=== PATIENT | male | born 1935 | race Caucasian/White ===

== ENCOUNTER 2016-09-19 15:56 | Emergency (ER) | payer OTHER ==
--- NOTE | 2016-09-19 16:15 | EDPHY ---
H & P Stated Complaint: fever Time Seen by Provider: 09/19/16 16:14 - Personal History Current Tetanus Diphtheria and Acellular Pertussis (TDAP): Yes Tetanus Vaccine Date: 09/2006 - Medical/Surgical History Hx Asthma: No Hx Chronic Respiratory Disease: Yes Hx Diabetes: No Hx Cardiac Disease: No Hx Renal Disease: No Hx Cirrhosis: No Hx Alcoholism: No Hx HIV/AIDS: No Hx Splenectomy or Spleen Trauma: No Other PMH: sleep apnea, high cholesterol. slow heart rate (in 40-50s). low BP - Social History Smoking Status: Former smoker Constitutional: Initial Vital Signs Temperature (C) 37.5 C 09/19/16 16:04 Heart Rate 54 L 09/19/16 16:04 Respiratory Rate 16 09/19/16 16:04 Blood Pressure 188/75 H 09/19/16 16:04 O2 Sat (%) 91 L 09/19/16 16:04 O2 Delivery Mode Room Air Allergies/Adverse Reactions: No Known Allergies Allergy (Verified 08/29/15 13:11) Home Medications: Medication Instructions Recorded Cephalexin [Keflex] 500 mg PO QID 5 Days 08/29/15 Fenofibric Acid (Choline) 45 mg PO 08/29/15 [TRILIPIX] Fluticasone Nasal [Flonase Nasal 16 gm NS 08/29/15 Benedict] Hydrocodone/APAP 5/325 [K[place]haw 1 tab PO Q4H PRN #7 tab 08/29/15 5/325] Rosuvastatin Calcium [Crestor] 20 mg PO DAILY 08/29/15 levOFLOXACIN [levAQUIN (*)] 750 mg PO DAILY #10 tab 09/19/16 Medical Decision Making - Diagnostics Imaging Results: Imaging Impressions Chest X-Ray 09/19/16 16:25 Impression: Suspect airways disease with increased basilar opacities bilaterally , pneumonia versus atelectasis. ED Course/Re-evaluation: CHIEF COMPLAINT: Dyspnea HISTORY OF PRESENT ILLNESS: The patient is a 80 y/o male with COPD arriving in the emergency department with worsening dyspnea, onset 3 days ago. Saturday night the patient was out in the cold and woke up Saturday with a cough, sore throat, cough, dyspnea, and subjective fever and chills. He has a history of pneumonia and described his symptoms as similar to his last pneumonic episode. He denies chest pain or pressure, diaphoresis, nausea, or additional complaints. He has not had any recent long flights or admissions to the hospital. REVIEW OF SYSTEMS: A 10 point review of systems was performed and is negative with the exception of the elements mentioned in the history of present illness. PHYSICAL EXAM: HR 54, BP 188/75, O2 Sat 91%, RR 16. Temp noted 37.5 C General Appearance: Afebrile, alert, well hydrated, appropriate, and non-toxic appearing. Head: Atraumatic without scalp tenderness or obvious injury Eyes: Pupils equal, round, reactive to light and accommodation, EOMI, no trauma , no injection. Ears: Clear bilaterally, no perforation, normal landmarks Nose: Atraumatic, no rhinorrhea, clear. Throat: There is no erythema or exudates, no lesions, normal tonsils, mucus membranes moist. Neck: Supple, 2+ carotid upstroke, nontender, no lymphadenopathy. Respiratory: Waxing and waning breath sounds. No retractions, no wheezes, and no accessory muscle use. Diffuse coarse rhonchi, decreased breath sounds left base. Cardiovascular: Regular rate and rhythm, no murmurs, rubs, or gallops. Bilateral carotid, radial, dorsalis pedis, and posterior tibial pulses intact. Good capillary refill all extremities. Gastrointestinal: Abdomen is soft, nontender, non-distended, no masses, no rebound, no guarding, no peritoneal signs. Musculoskeletal: Normal active ROM of all extremities, atraumatic. Neurological: Alert, appropriate, and interactive. The patient has normal DTRs and non-focal cranial nerves, motor, sensory, and cerebellar exam. Skin: No rashes, good turgor, no nodules on palpation. Past medical history: Pneumonia, COPD, sleep apnea Past surgical history: Denies Family history: Non-contributory Social history: at bedside DIFFERENTIAL DIAGNOSIS: The differential diagnosis for the patient's shortness of breath included but was not limited to pneumonia, myocardial infarction, acute mountain sickness, high altitude pulmonary edema, congestive heart failure, and pulmonary embolus. MEDICAL DECISION MAKING: This is a 80 y/o male presenting with a cough, sore throat, cough, dyspnea, and subjective fever and chills. He has COPD and has a history of pneumonia. He was afebrile upon arrival. He is hypoxemic at 91% on RA. On exam, he has diffuse coarse rhonchi and decreased breath sounds to the left base. No chest pain, no long trips, no recent visits in other hospitals. Plan for chest x-ray and labs, including lactate level. Labs reviewed and are unremarkable. WBC is within normal limits. Blood gas is normal. He does not meet sepsis criteria. 3ml IH DuoNeb administered. X-ray reviewed and is positive for bilateral pneumonia. Will start the patient on 750mg Levaquin and administer 10mg IV Decadron given history of COPD. I discussed findings and treatment plan with the patient who is agreeable to this. He will be discharged home in good condition with instructions to follow- up with his PCP without fail in the next 24-48 hours. He understands strict return precautions and agrees to return to the ED with worsening dyspnea, cough , fever, or chest pain. - Data Points Laboratory Results: Laboratory Results 09/19/16 16:31 09/19/16 16:31 09/19/16 09/19/16 09/19/16 16:31 16:31 16:31 WBC 9.44 10^3/uL 10^3/uL (3.80-9.50) RBC 5.87 10^6/uL 10^6/uL (4.40-6.38) Hgb 18.5 g/dL H g/dL (13.7-17.5) Hct 53.7 % H % (40.0-51.0) MCV 91.5 fL fL (81.5-99.8) MCH 31.5 pg pg (27.9-34.1) MCHC 34.5 g/dL g/dL (32.4-36.7) RDW 12.1 % % (11.5-15.2) Plt Count 173 10^3/uL 10^3/uL (150-400) MPV 9.9 fL fL (8.7-11.7) Neut % (Auto) 74.2 % % (39.3-74.2) Lymph % (Auto) 11.7 % L % (15.0-45.0) Cecil % (Auto) 11.7 % % (4.5-13.0) Eos % (Auto) 1.6 % % (0.6-7.6) Baso % (Auto) 0.6 % % (0.3-1.7) Nucleat RBC Rel Count 0.0 % % (0.0-0.2) Absolute Neuts (auto) 7.01 10^3/uL H 10^3/uL (1.70-6.50) Absolute Lymphs (auto) 1.10 10^3/uL 10^3/uL (1.00-3.00) Absolute Monos (auto) 1.10 10^3/uL H 10^3/uL (0.30-0.80) Absolute Eos (auto) 0.15 10^3/uL 10^3/uL (0.03-0.40) Absolute Basos (auto) 0.06 10^3/uL 10^3/uL (0.02-0.10) Absolute Nucleated RBC 0.00 10^3/uL 10^3/uL (0-0.01) Immature Gran % 0.2 % % (0.0-1.1) Immature Gran # 0.02 10^3/uL 10^3/uL (0.00-0.10) PT 12.8 SEC SEC (12.0-15.0) INR 0.97 (0.83-1.16) APTT 24.1 SEC SEC (23.0-38.0) VBG Lactic Acid Sodium 141 mEq/L mEq/L (134-144) Potassium 4.5 mEq/L mEq/L (3.5-5.2) Chloride 103 mEq/L mEq/L (97-110) Carbon Dioxide 26 mEq/l mEq/l (22-31) Anion Gap 12 mEq/L mEq/L (8-16) BUN 19 mg/dL mg/dL (7-23) Creatinine 1.3 mg/dL mg/dL (0.7-1.3) Estimated GFR 53 Glucose 114 mg/dL H mg/dL (70-100) Calcium 9.7 mg/dL mg/dL (8.5-10.4) Total Bilirubin 1.5 mg/dL H mg/dL (0.1-1.4) 09/19/16 16:31 WBC RBC Hgb Hct MCV MCH MCHC RDW Plt Count MPV Neut % (Auto) Lymph % (Auto) Cecil % (Auto) Eos % (Auto) Baso % (Auto) Nucleat RBC Rel Count Absolute Neuts (auto) Absolute Lymphs (auto) Absolute Monos (auto) Absolute Eos (auto) Absolute Basos (auto) Absolute Nucleated RBC Immature Gran % Immature Gran # PT INR APTT VBG Lactic Acid 1.8 mmol/L mmol/L (0.7-2.1) Sodium Potassium Chloride Carbon Dioxide Anion Gap BUN Creatinine Estimated GFR Glucose Calcium Total Bilirubin Medications Given: Discontinued Medications Albuterol/Ipratropium (Duoneb) 3 ml IH EDNOW ONE Stop: 09/19/16 17:37 Last Admin: 09/19/16 17:41 Dose: 3 ml Levofloxacin (Levaquin) 750 mg PO EDNOW ONE PRN Reason: Protocol Stop: 09/19/16 17:35 Last Admin: 09/19/16 17:42 Dose: 750 mg Departure - Departure Disposition: Home, Routine, Self-Care Clinical Impression: Pneumonia Qualifiers: Pneumonia type: due to unspecified organism Laterality: bilateral Lung location : lower lobe of lung Qualified Code(s): J18.9 - Pneumonia, unspecified organism Condition: Good Instructions: Viral Pneumonia (ED) Additional Instructions: 1. Take the full course of Levaquin as prescribed to treat your pneumonia. 2. Use an albuterol inhaler at home up to three times daily as needed to help your shortness of breath. 3. Follow-up with your primary care provider for reevaluation without fail in the next 1-2 days. 4. Return to the Emergency Department if you experience increased shortness of breath, worsening cough, high uncontrollable fever, chest pain, or for other serious concerns. Referrals: Tish Hathaway PA [Primary Care Provider] - As per Instructions Prescriptions: levOFLOXACIN [levAQUIN (*)] 750 mg PO DAILY #10 tab
[2016-09-19 16:41] LABS: % IMMATURE GRANULYOCYTES 0.2 % (0.0-1.1); ABSOLUTE IMMATURE GRANULOCYTES 0.02 10^3/uL (0.00-0.10); ADD DIFF? NO; ADD MORPH? NO; ADD SCAN? NO; ATYPICAL LYMPHOCYTE FLAG 0 (0-99); FRAGMENT RBC FLAG 0 (0-99); HEMATOCRIT 53.7 % (40.0-51.0); HEMOGLOBIN 18.5 g/dL (13.7-17.5); LEFT SHIFT FLG 0 (0-99); LIPEMIA HEMOLYSIS FLAG 90 (0-99); MEAN CELL HEMOGLOBIN 31.5 pg (27.9-34.1); MEAN CELL HEMOGLOBIN CONCENTR. 34.5 g/dL (32.4-36.7); MEAN CELL VOLUME 91.5 fL (81.5-99.8); MEAN PLATELET VOLUME 9.9 fL (8.7-11.7); PLATELET CLUMPS FLAG 0 (0-99); PLATELET COUNT 173 10^3/uL (150-400); RED BLOOD CELL COUNT 5.87 10^6/uL (4.40-6.38); RED CELL DISTRIBUTION WIDTH 12.1 % (11.5-15.2)
[2016-09-19 16:59] LABS: ANION GAP 12 mEq/L (8-16); BILIRUBIN,TOTAL 1.5 mg/dL (0.1-1.4); CALCIUM 9.7 mg/dL (8.5-10.4); CARBON DIOXIDE 26 mEq/l (22-31); CHLORIDE 103 mEq/L (97-110); CREATININE 1.3 mg/dL (0.7-1.3); GLOMERULAR FILTRATION RATE 53; GLUCOSE 114 mg/dL (70-100); POTASSIUM 4.5 mEq/L (3.5-5.2); SODIUM 141 mEq/L (134-144)
[2016-09-19 17:11] LABS: INR 0.97 (0.83-1.16); PROTIME(PATIENT) 12.8 SEC (12.0-15.0)
[2016-09-19 17:12] LABS: APTT 24.1 SEC (23.0-38.0)
[2016-09-19] MEDS ORDERED: IPRATROPIUM/ALBUTEROL 3 ML DEYVIAL IH ONE (17:36)
[2016-09-19] MEDS ORDERED: DEXAMETHASONE 10 MG/ML VIAL IVP ONE (17:42)
[2016-09-19] MEDS ORDERED: DEXAMETHASONE 10 MG/ML VIAL ONE (17:46)
[2016-09-19 18:05] VITALS: BP 176/84; PULSE 60; RESP 18; TEMP 97.5; O2SAT 94
== END 2016-09-19 18:03 | disposition home or self-care (01) ==
DX: J18.9 Pneumonia, unspecified organism (principal); J44.9 Chronic obstructive pulmonary disease, unspecified; Z87.891 Personal history of nicotine dependence
CPT/HCPCS: 96374